=== PATIENT | male | born 1985 | race Native Hawaiian/Other Pacific Islander ===

== ENCOUNTER 2017-09-14 08:04 | Emergency (ER) | payer OTHER ==
[2017-09-14] MEDS ORDERED: Sodium Chloride 0.9% 1,000 ML IV STA (08:58)
[2017-09-14 09:20] LABS: BASO # 0.1 K/uL (0.0-0.2); BASO % 0.6 % (0.0-2.0); EOS # 0.1 K/uL (0.0-0.7); EOS % 1.1 % (0.0-4.0); HEMOGLOBIN 17.2 g/dL (12.0-18.0); LYMPH # 3.4 K/uL (1.0-4.3); LYMPH % 38.5 % (20.0-40.0); MEAN CELL VOLUME 88.2 fl (80.0-94.0); MEAN CORPUSCULAR HGB CONC 34.1 g/dL (33.0-37.0); MONO # 0.8 K/uL (0.0-0.8); NEUT # 4.5 K/uL (1.8-7.0); NEUT % 50.8 % (50.0-75.0); NRBC % 0.1 % (0.0-0.0); RBC 5.73 Mil/uL (4.40-5.90); RED CELL DISTRIBUTION WIDTH 12.7 % (11.5-14.5); WHITE BLOOD COUNT 8.9 K/uL (4.8-10.8)
[2017-09-14 09:31] LABS: BLOOD UREA NITROGEN 7 mg/dl (9-20); CALCIUM 9.3 mg/dL (8.4-10.2); GFR AFRICAN-AMERICAN > 60; GFR NON-AFRICAN AMERICAN > 60
--- NOTE | 2017-09-14 13:03 | CT ---
PROCEDURE: CT Abdomen and Pelvis without intravenous contrast HISTORY: renal colic suprapubic pain COMPARISON: None. TECHNIQUE: Helical CT of the abdomen and pelvis was performed without oral or intravenous contrast as per referring physician request. Contrast dose: None Radiation dose: Total exam DLP = 358.54 mGy-cm. This CT exam was performed using one or more of the following dose reduction techniques: Automated exposure control, adjustment of the mA and/or kV according to patient size, and/or use of iterative reconstruction technique. FINDINGS: LOWER THORAX: Unremarkable. LIVER: Unremarkable as imaged. GALLBLADDER AND BILE DUCTS: Unremarkable. PANCREAS: Unremarkable as imaged. SPLEEN: Unremarkable. ADRENALS: Unremarkable. No mass. KIDNEYS AND URETERS: No hydronephrosis appreciate bilaterally however the left ureter is mildly dilated in a 5 mm calculus identified in the medial left urinary bladder base suggestive of a probably decompress left renal and ureteral collecting system doing spelling of the calculus into the bladder. UVJ obstruction is unlikely though not completely excluded. Small lower pole left intrarenal calculi are identified measuring approximate 3-4 mm in number at total of 2. No additional radiodense urolithiasis bilaterally. No right-sided obstructive uropathy. Urinary bladder is partially decompressed. VASCULATURE: Unremarkable. No aortic aneurysm. BOWEL: Unremarkable. No obstruction. No gross mural thickening. APPENDIX: Unremarkable. Normal appendix. PERITONEUM: Unremarkable. No free fluid. No free air. LYMPH NODES: Unremarkable. No enlarged lymph nodes. BLADDER: See kidneys in ureter section above. REPRODUCTIVE: Unremarkable. BONES: No acute fracture. OTHER FINDINGS: None. IMPRESSION: No left hydronephrosis although residual hydroureter is seen at the left ureter likely due to expelled calculus in the urinary bladder base measuring 5 mm greatest dimension. 2 small intrarenal calculi remain at the lower pole left kidney with none identified at the right kidney. Lack of oral and intravenous contrast limits evaluation rating abdominal and pelvic viscera. No other potential acute abdominal pelvic findings grossly evident.
--- NOTE | 2017-09-14 13:49 | ED PDOC ---
HPI: Abdomen Time Seen by Provider: 09/14/17 08:30 Chief Complaint (Nursing): Male Genitourinary Chief Complaint (Provider): Abdominal Pain History Per: Patient History/Exam Limitations: no limitations Onset/Duration Of Symptoms: Hrs (this morning) Current Symptoms Are (Timing): Still Present Quality Of Discomfort: Sharp Additional Complaint(s): 32 year old male with a history of kidney stones presents to the ED complaining of sharp, constant suprapubic and groin pain that started last night. He reports dysuria and hematuria but no other medical complaints. PMD: none provided Past Medical History Reviewed: Historical Data, Nursing Documentation, Vital Signs Vital Signs: Last Vital Signs Temp 98.0 F 09/14/17 14:17 Pulse 80 09/14/17 14:17 Resp 16 09/14/17 14:17 BP 110/78 09/14/17 14:17 Pulse Ox 99 09/14/17 16:35 - Medical History PMH: Kidney Stones - Surgical History Surgical History: Appendectomy - Family History Family History: States: No Known Family Hx - Home Medications Home Medications: Ambulatory Orders Medication Instructions Recorded Ciprofloxacin HCl [Cipro] 500 mg PO BID #10 tablet 09/14/17 Ketorolac Tromethamine [Toradol] 10 mg PO TID PRN #15 tab 09/14/17 Tamsulosin [Flomax] 0.4 mg PO DAILY #7 cap 09/14/17 - Allergies Allergies/Adverse Reactions: Allergies Allergy/AdvReac Type Severity Reaction Status Date / Time No Known Allergies Allergy Verified 09/14/17 08:13 Review of Systems ROS Statement: Except As Marked, All Systems Reviewed And Found Negative Gastrointestinal: Positive for: Abdominal Pain (suprapubic and groin pain ) Genitourinary Male: Positive for: Dysuria, Hematuria Physical Exam - Reviewed Nursing Documentation Reviewed: Yes Vital Signs Reviewed: Yes - Physical Exam Appears: Positive for: Non-toxic, Uncomfortable Head Exam: Positive for: ATRAUMATIC, NORMOCEPHALIC Skin: Positive for: Normal Color, Warm, Dry Eye Exam: Positive for: EOMI, Normal appearance, PERRL ENT: Positive for: Normal ENT Inspection Neck: Positive for: Normal, Painless ROM Cardiovascular/Chest: Positive for: Regular Rate, Rhythm. Negative for: Murmur Respiratory: Positive for: Normal Breath Sounds. Negative for: Respiratory Distress Gastrointestinal/Abdominal: Positive for: Tenderness (suprapubic ) Back: Positive for: Normal Inspection. Negative for: L CVA Tenderness, R CVA Tenderness Extremity: Positive for: Normal ROM (upper and lower extremities). Negative for : Pedal Edema, Deformity Neurologic/Psych: Positive for: Alert, Oriented (x3) - Laboratory Results Result Diagrams: 09/14/17 09:13 09/14/17 09:13 - ECG O2 Sat by Pulse Oximetry: 99 (RA) Pulse Ox Interpretation: Normal Medical Decision Making Medical Decision Making: Time: 8:52 Initial Impression: Suprapubic pain, groin pain, hematuria Differential diagnoses include but are not limited to: renal colic (nephritis) or UTI Initial Plan: --CT abd & pelvis --BMP --Urine dip --CBC with differentials --Flomax 0.4 mg PO --NS --Toradol 30 mg Time: 13:01 CT abd & pelvis: FINDINGS: LOWER THORAX: Unremarkable. LIVER: Unremarkable as imaged. GALLBLADDER AND BILE DUCTS: Unremarkable. PANCREAS: Unremarkable as imaged. SPLEEN: Unremarkable. ADRENALS: Unremarkable. No mass. KIDNEYS AND URETERS: No hydronephrosis appreciate bilaterally however the left ureter is mildly dilated in a 5 mm calculus identified in the medial left urinary bladder base suggestive of a probably decompress left renal and ureteral collecting system doing spelling of the calculus into the bladder. UVJ obstruction is unlikely though not completely excluded. Small lower pole left intrarenal calculi are identified measuring approximate 3-4 mm in number at total of 2. No additional radiodense urolithiasis bilaterally. No right-sided obstructive uropathy. Urinary bladder is partially decompressed. VASCULATURE: Unremarkable. No aortic aneurysm. BOWEL: Unremarkable. No obstruction. No gross mural thickening. APPENDIX: Unremarkable. Normal appendix. PERITONEUM: Unremarkable. No free fluid. No free air. LYMPH NODES: Unremarkable. No enlarged lymph nodes. BLADDER: See kidneys in ureter section above. REPRODUCTIVE: Unremarkable. BONES: No acute fracture. OTHER FINDINGS: None. IMPRESSION: No left hydronephrosis although residual hydroureter is seen at the left ureter likely due to expelled calculus in the urinary bladder base measuring 5 mm greatest dimension. 2 small intrarenal calculi remain at the lower pole left kidney with none identified at the right kidney. Lack of oral and intravenous contrast limits evaluation rating abdominal and pelvic viscera. No other potential acute abdominal pelvic findings grossly evident. Time: 13:30 --Reassessment, patient is better, pain has subsided. Scribe Attestation: Documented by Christa Neville, acting as a scribe for Isabela Menjivar MD Provider Scribe Attestation: All medical record entries made by the Scribe were at my direction and personally dictated by me. I have reviewed the chart and agree that the record accurately reflects my personal performance of the history, physical exam, medical decision making, and the department course for this patient. I have also personally directed, reviewed, and agree with the discharge instructions and disposition. Disposition - Clinical Impression Clinical Impression: Renal colic, Urinary bladder stone - Patient ED Disposition Is Patient to be Admitted: No Doctor Will See Patient In The: Office Counseled Patient/Family Regarding: Studies Performed, Diagnosis, Need For Followup - Disposition Referrals: Franco Stack MD [Medical Doctor] - Disposition: Routine/Home Disposition Time: 13:30 Condition: GOOD Additional Instructions: Take your medications as instructed. follow up with your PCP in 2-3 days. Prescriptions: Ciprofloxacin HCl [Cipro] 500 mg PO BID #10 tablet Ketorolac Tromethamine [Toradol] 10 mg PO TID PRN #15 tab PRN Reason: Pain, Severe (8-10) Tamsulosin [Flomax] 0.4 mg PO DAILY #7 cap Instructions: Renal Colic
[2017-09-14 14:06] VITALS: BP 110/78; PULSE 80; RESP 16; TEMP 98
[2017-09-14 14:18] VITALS: O2SAT 99
== END 2017-09-14 14:17 | disposition home or self-care (01) ==
LOC: H.ER 08:04
DX: N23 Unspecified renal colic (principal); N21.0 Calculus in bladder
CPT/HCPCS: 74176; 80048; 85025; 96374; 99283; J1885; J7030

== ENCOUNTER 2017-10-26 14:33 | Emergency (ER) | payer OTHER ==
[2017-10-26 14:44] VITALS: RESP 18; TEMP 98
--- NOTE | 2017-10-26 16:23 | ED PDOC ---
HPI: Male Pain Time Seen by Provider: 10/26/17 14:56 Chief Complaint (Nursing): Male Genitourinary Chief Complaint (Provider): Male Genitourinary History Per: Patient History/Exam Limitations: no limitations Onset/Duration Of Symptoms: Hrs Current Symptoms Are (Timing): Still Present Additional Complaint(s): 32 y/o male with a PMHx of kidney stones presents to the ED complaining of abdominal pain. Patient states he was seen for the kidney stone last month, had a CT performed and believed he passed it. However, while at work today patient began having penile pain. Patient believed he began to pass through the kidney stone again and is now requesting Flomax as he has run out. Otherwise: (-) dysuria, (-) hematuria, (-) discharge, (-) fever, (-) nausea, (-) vomiting, (-) abdominal / flank / back pain. Past Medical History Reviewed: Historical Data, Nursing Documentation, Vital Signs Vital Signs: Last Vital Signs Temp 98 F 10/26/17 14:43 Pulse 117 H 10/26/17 14:43 Resp 18 10/26/17 14:43 BP 127/89 10/26/17 14:43 Pulse Ox 96 10/26/17 14:43 - Medical History PMH: Kidney Stones - Surgical History Surgical History: Appendectomy - Family History Family History: States: No Known Family Hx - Home Medications Home Medications: Ambulatory Orders Medication Instructions Recorded Ciprofloxacin HCl [Cipro] 500 mg PO BID #10 tablet 09/14/17 Ketorolac Tromethamine [Toradol] 10 mg PO TID PRN #15 tab 09/14/17 Tamsulosin [Flomax] 0.4 mg PO DAILY #7 cap 09/14/17 Naproxen 500 mg PO BID PRN #20 tablet 10/26/17 Tamsulosin [Flomax] 0.4 mg PO DAILY #20 cap 10/26/17 - Allergies Allergies/Adverse Reactions: Allergies Allergy/AdvReac Type Severity Reaction Status Date / Time No Known Allergies Allergy Verified 10/26/17 14:43 Review of Systems ROS Statement: Except As Marked, All Systems Reviewed And Found Negative Constitutional: Negative for: Fever Gastrointestinal: Positive for: Abdominal Pain. Negative for: Nausea, Vomiting Genitourinary Male: Negative for: Dysuria, Hematuria, Penile Discharge Musculoskeletal: Negative for: Back Pain Physical Exam - Reviewed Nursing Documentation Reviewed: Yes Vital Signs Reviewed: Yes - Physical Exam Comments: GENERAL APPEARANCE: Patient is awake, alert, oriented x 3, in mild painful distress. SKIN: Warm, dry; (-) cyanosis. EYES: (-) conjunctival pallor, (-) scleral icterus. ENMT: Mucous membranes moist. NECK: (-) tenderness, (-) stiffness, (-) lymphadenopathy. CHEST AND RESPIRATORY: (-) rales, (-) rhonchi, (-) wheezes; breath sounds equal bilaterally. HEART AND CARDIOVASCULAR: (-) irregularity; (-) murmur, (-) gallop. ABDOMEN AND GI: (-) distention. Bowel sounds active; (-) tenderness (-) guarding, (-) rebound, (-) palpable masses, (-) CVA tenderness. EXTREMITIES: (-) deformity, (-) edema, (+) distal pulses. NEURO AND PSYCH: Mental status as above; (-) focal findings. - ECG O2 Sat by Pulse Oximetry: 96 (RA) Pulse Ox Interpretation: Normal Medical Decision Making Medical Decision Making: Time: 151 Plan: -- Urine Culture -- Urinalysis -- Flomax 0.4 mg PO -- (+) large blood and no infection shown in results of U-Dip. -- On reevaluation, patient is laying in bed comfortably in no acute distress. Patient reports improvement of pain. Reports no nausea, vomiting, abdominal pain , flank pain, back pain. -- Advised to follow up with urologist in 1-2 days without fail. Advised to take medication as prescribed. Return to the emergency room at any time for any new or worsening symptoms. -- Patient states he fully agrees with and understands discharge instructions. States that he agrees with the plan and disposition. Verbalized and repeated discharge instructions and plan. I have given the patient opportunity to ask any additional questions. Scribe Attestation: Documented by Anjali Rodriguez acting as a scribe for Latoya Clement PA-C. Provider Scribe Attestation: All medical record entries made by the Scribe were at my direction and personally dictated by me. I have reviewed the chart and agree that the record accurately reflects my personal performance of the history, physical exam, medical decision making, and the department course for this patient. I have also personally directed, reviewed, and agree with the discharge instructions and disposition. Disposition - Clinical Impression Clinical Impression: Renal stones, Penile pain - Patient ED Disposition Is Patient to be Admitted: No Counseled Patient/Family Regarding: Studies Performed, Diagnosis, Need For Followup, Rx Given - Disposition Referrals: Tano Paul MD [Medical Doctor] - Disposition: Routine/Home Disposition Time: 16:30 Condition: STABLE Additional Instructions: Thank you for letting us take care of you today. You were treated for penile pain, h/o kidney stones. The emergency medical care you received today was directed at your acute symptoms. If you were prescribed any medication, please fill it and take as directed. It may take several days for your symptoms to resolve. Return to the Emergency Department if your symptoms worsen, do not improve, or if you have any other problems. Please call one of the physicians/clinics you have been referred to that are listed on the Patient Visit Information form that is included in your discharge packet. Bring any paperwork you were given at discharge with you along with any medications you are taking to your follow up visit. Our treatment cannot replace ongoing medical care by a primary care provider (PCP) outside of the emergency department. Thank you for allowing the [email or web address] team to be part of your care today. If you had a urine culture: It will take several days for the results, if any change in treatment is needed we will contact you. Prescriptions: Naproxen 500 mg PO BID PRN #20 tablet PRN Reason: Pain, Moderate (4-7) Tamsulosin [Flomax] 0.4 mg PO DAILY #20 cap Instructions: Kidney Stones in Adults Forms: [employer] ([place]), [facility] ED School/Work Excuse - PA / DISABILITY ADVOCATE / Resident Statement MD/DO has reviewed & agrees with the documentation as recorded.
[2017-10-26 16:57] VITALS: BP 120/72; PULSE 88
[2017-10-26 18:43] VITALS: O2SAT 96
== END 2017-10-26 16:56 | disposition home or self-care (01) ==
LOC: H.ER 14:33
DX: N20.0 Calculus of kidney (principal); N48.89 Other specified disorders of penis